=== PATIENT | female | born 1980 | race Caucasian/White ===

== ENCOUNTER → 2020-07-27 15:12 | Outpatient (BNVA) | payer BC, SELFPAY | PROVIDERS: PCP Family Medicine; Visit Provider Internal Medicine Rheumatology | DX: M19.90 Unspecified osteoarthritis, unspecified site (principal); M79.7 Fibromyalgia; Z79.899 Other long term (current) drug therapy; E11.9 Type 2 diabetes mellitus without complications; Z79.84 Long term (current) use of oral hypoglycemic drugs | CPT/HCPCS: 99203 ==

== ENCOUNTER 2020-07-28 16:48 | Outpatient (CLI) | payer BC, SELFPAY ==
--- NOTE | 2020-07-28 17:04 | XR_ITS ---
WS: [id number] Left hand, 3 views, 07/29/2020 Clinical Data: M79.7 - Fibromyalgia Comparison: None. Findings: No fractures or dislocations are seen. The soft tissues are unremarkable. The joint spaces are normal No periarticular demineralization or calcification is seen. XR/XR hand LT min 3V* [id number] Impression: Negative left hand.
--- NOTE | 2020-07-28 17:04 | XR_ITS ---
WS: [id number] Right hand, 3 views, 07/28/2020 Clinical Data: M79.7 - Fibromyalgia Comparison: None. Findings: No fractures or dislocations are seen. The soft tissues are unremarkable. The joint space s are normal No periarticular demineralization or calcification is seen. XR/XR hand RT min 3V* [id number] Impression: Negative right hand.
--- NOTE | 2020-07-28 17:04 | XR_ITS ---
WS: [id number] Left foot, 3 views, 07/28/2020 Clinical Data: M79.7 - Fibromyalgia Comparison: None. Findings: No fractures or dislocations are seen. No bone destruction or erosion is noted. The joint spaces and soft tissues are normal. No periarticular demineralization or calcification is seen. XR/XR foot LT min 3V* [id number] Impression: Negative left foot.
--- NOTE | 2020-07-28 17:04 | XR_ITS ---
WS: [id number] Right foot, 3 views, 07/28/2020 Clinical Data: M79.7 - Fibromyalgia Comparison: None. Findings: No fractures or dislocations are seen. No bone destruction or erosion is noted. The joint spaces and soft tissues are normal. No periarticular demineralization or calcification is seen. XR/XR foot RT min 3V* [id number] Impression: Negative right foot.
[2020-07-28 17:42] LABS: Basophils # 0.1 10^3/uL (0.0-0.1); Basophils % 1.2 %; Eosinophils # 0.6 10^3/uL (0.0-0.8); Eosinophils % 5.6 %; Hematocrit 39.3 % (37.0-47.0); Lymphocytes # 4.2 10^3/uL (0.8-4.8); Lymphocytes % 40.9 %; Mean Corpuscular HGB Conc 33.1 g/dL (30.0-36.0); Mean Corpuscular Hemoglobin 27.7 pg (28.0-34.0); Mean Corpuscular Volume 83.8 fL (81-99); Mean Platelet Volume 9.4 fL (7.4-10.4); Monocytes # 0.6 10^3/uL (0.2-0.9); Monocytes % 5.4 %; Neutrophils % 46.7 %; Nucleated Red Blood Cells % 0 %; Platelet Count 306 10^3/cmm (130-400); Red Blood Count 4.69 10^6/uL (4.1-5.3); Red Cell Distribution Width 14.1 % (12.1-15.1); White Blood Count 10.3 10^3/uL (4.0-10.0)
[2020-07-28 18:29] LABS: 25 Hydroxy Vitamin D 46 ng/mL (30-100); Alanine Aminotransferase 12 U/L (0-33); Albumin Level 4.3 g/dL (3.5-5.2); Alkaline Phosphatase 81 IU/L (35-105); Aspartate Amino Transferase 11 U/L (0-32); C Reactive Protein 1.7 mg/L (0.0-4.9); Glomerular Filtration Rate 91.8 mL/min (90-130); Total Bilirubin 0.2 mg/dL (0.15-1.2); Total Protein 6.3 g/dL (6.6-8.7)
[2020-07-28 19:29] LABS: Erythrocyte Sedimentation Rate 8 mm/hr (0-15)
[2020-08-01 13:18] LABS: Anti-Nuclear Antibody Screen NEGATIVE (NEGATIVE)
[2020-08-01 14:18] LABS: Cyclic Citrullinated Peptide <16 UNITS
[2020-08-02 14:53] LABS: Tissue Transglutaminase IgA Ab <1 U/mL; Tissue transglutaminase Ab.IgG 3 U/mL
[2020-08-04 11:53] LABS: Immunoglobulin A 135 mg/dL (47-310)
[2020-08-07 17:53] LABS: Gliadin Ab.IgA 7 U (<20); Gliadin Ab.IgG 2 U (<20)
== END 2020-07-28 16:49 | disposition home or self-care (01) ==
PROVIDERS: PCP Family Medicine; Visit Provider Internal Medicine Rheumatology
DX: M79.7 Fibromyalgia (principal); M19.90 Unspecified osteoarthritis, unspecified site; Z79.899 Other long term (current) drug therapy
CPT/HCPCS: 36415; 73130; 73630; 80076; 82306; 82565; 82784; 83516; 85025; 85651; 86038; 86140; 86431

== ENCOUNTER → 2020-08-11 11:36 | Outpatient (BNVA) | payer OTHER, SELFPAY | PROVIDERS: PCP Family Medicine; Visit Provider Specialist | DX: G43.709 Chronic migraine without aura, not intractable, without status migrainosus (principal); M79.7 Fibromyalgia | CPT/HCPCS: 99204 ==

== ENCOUNTER 2020-10-05 12:54 | Outpatient (CLI) | payer OTHER, SELFPAY ==
--- NOTE | 2020-10-05 16:00 | MR_ITS ---
WS: [id number] MRI HEAD WITHOUT CONTRAST TECHNIQUE: Sagittal T1, T2 axial, T2 axial FLAIR, axial and coronal T1 images, axial susceptibility w eighted imaging, axial diffusion weighted images, and coronal T2 images were obtained. CLINICAL INFORMATION: G43.909 - Migraine, unspecified, not intractable, without status migrainosus COMPARISON: None. FINDINGS: No evidence of restricted diffusion to suggest acute ischemia. Ventricular system and basal cisterns are patent. No suspicious intracranial signal abnormalities. Normal lamb-white differentiation. No si gnificant parenchymal volume loss. Normal posterior fossa. Normal vascular flow voids at the skull base. No extra-axial fluid collection s. No evidence of mass or mass effect. Paranasal sinuses and mastoid air cells are well aerated. No hemosiderin on susceptibly weighted imag es. Normal optic chiasm and pituitary infundibulum. Temporal lobes and hippocampal formations are nor mal in appearance. MR/MR head wo con* [id number] IMPRESSION: 1. No evidence of restricted diffusion to suggest acute ischemia. 2. No suspicious intracranial signal abnormalities. No significant parenchymal volume loss. 3. No hemosiderin on the susceptibility weighted images. 4. Normal optic chiasm and pituitary infundibulum. 5. Normal temporal lobes and hippocampal formations.
--- NOTE | 2020-10-05 16:45 | MR_ITS ---
WS: [id number] MRI CERVICAL SPINE NONCONTRAST TECHNIQUE: Sagittal T1, T2 and STIR imaging. Axial T2, gradient, and fiesta imaging. CLINICAL INFORMATION: Gait Ataxia COMPARISON: None. FINDINGS: Straightening of the normal cervical lordosis. Cord signal is normal. No high-grade central canal mina rowing. C2-C3: Normal. C3-C4: No significant disc bulging. Mild left and no significant right foraminal narrowing. Mild left facet arthropathy. Spinal canal is patent. C4-C5: Mild right and no significant left foraminal narrowing. Mild facet arthropathy. Spinal canal i s patent. C5-C6: Tiny central disc protrusion. Slight effacement of ventral thecal sac. Mild facet arthropathy. Mild right foraminal narrowing. C6-C7: Tiny shallow central protrusion. Slight effacement of ventral thecal sac. Foramen are patent. C7-T1: Normal. T2 hyperintense 6 mm left thyroid nodule. Visualized brain stem structures: Normal. Prevertebral soft tissues: Normal. MR/MR cervical spin wo con* [id number] IMPRESSION: 1. Straightening of the normal cervical lordosis. Cord signal is normal. 2. Tiny central disc protrusion C5-C6 and C6-C7 with slight effacement of vent ral thecal sac. No significant central canal stenosis. 3. Mild bony foraminal narrowing right C4-C5, right C5-C6
== END 2020-10-05 12:55 | disposition home or self-care (01) ==
PROVIDERS: Visit Provider Specialist
DX: R26.0 Ataxic gait (principal); G43.909 Migraine, unspecified, not intractable, without status migrainosus; M50.222 Other cervical disc displacement at C5-C6 level
CPT/HCPCS: 70551; 72141

== ENCOUNTER → 2020-11-28 14:00 | Outpatient (BNVA) | payer BC, SELFPAY | PROVIDERS: PCP Family Medicine; Visit Provider Internal Medicine Rheumatology | DX: M19.90 Unspecified osteoarthritis, unspecified site (principal); M79.7 Fibromyalgia; E11.9 Type 2 diabetes mellitus without complications; Z79.84 Long term (current) use of oral hypoglycemic drugs | CPT/HCPCS: 99213; 99214 ==

== ENCOUNTER → 2021-02-07 13:14 | Outpatient (BNVA) | payer BC, SELFPAY | PROVIDERS: PCP Family Medicine; Visit Provider Specialist | DX: G43.711 Chronic migraine without aura, intractable, with status migrainosus (principal); M50.920 Unspecified cervical disc disorder, mid-cervical region, unspecified level | CPT/HCPCS: 99214 ==

== ENCOUNTER → 2021-05-19 09:58 | Outpatient (BNVA) | payer OTHER, SELFPAY | PROVIDERS: PCP Family Medicine; Referring Provider Specialist; Visit Provider Anesthesiology Pain Medicine | DX: G89.29 Other chronic pain (principal); M79.18 Myalgia, other site; M54.2 Cervicalgia | CPT/HCPCS: 20553; 99204; J1030; J3490 ==

== ENCOUNTER → 2021-05-23 13:47 | Outpatient (BNVA) | payer OTHER, SELFPAY | PROVIDERS: PCP Family Medicine; Visit Provider Specialist | DX: G43.711 Chronic migraine without aura, intractable, with status migrainosus (principal); G44.321 Chronic post-traumatic headache, intractable; M50.920 Unspecified cervical disc disorder, mid-cervical region, unspecified level | CPT/HCPCS: 99213; 99214 ==

== ENCOUNTER → 2021-05-25 15:00 | Outpatient (BNVA) | payer OTHER, SELFPAY | PROVIDERS: PCP Family Medicine; Visit Provider Internal Medicine Rheumatology | DX: M15.9 Polyosteoarthritis, unspecified (principal); M79.7 Fibromyalgia; Z79.899 Other long term (current) drug therapy; E11.9 Type 2 diabetes mellitus without complications; Z79.84 Long term (current) use of oral hypoglycemic drugs | CPT/HCPCS: 99214 ==